=== PATIENT | female | born 1985 | race Hispanic/Latino ===

== ENCOUNTER 2018-07-05 13:36 | Emergency (ER) | payer BC ==
[2018-07-05 13:56] LABS: #Basophils 0.1 thou/uL (0.0-0.2); #Eosinphils 0.3 thou/uL (0.0-0.7); #Lymphocytes 3.1 thou/uL (1.20-3.40); #Monocytes 0.4 thou/uL (0.11-0.59); #Neutrophils 5.1 thou/uL (1.40-6.50); %Basophils 0.8 % (0.0-1.0); %Eosinophils 3.2 % (0.0-10.0); %Lymphocytes 34.3 % (21.0-51.0); %Monocytes 4.4 % (0.0-10.0); %Neutrophils 57.2 % (42.0-75.0); Hemoglobin 12.6 g/dL (12.0-16.0); Mean Corpuscular HGB CONC 32.9 g/dL (32.0-36.0); Mean Corpuscular Hemoglobin 28.5 pg (27.0-31.0); Mean Corpuscular Volume 86.8 fL (78.0-98.0); Mean Platelet Volume 7.4 fL (7.4-10.4); Platelet Count 298 thou/uL (130-400); RBC Distribution Width 12.4 % (11.5-14.5); Red Blood Cell (RBC) Count 4.42 mill/uL (4.20-5.40); White Blood Cell (WBC) Count 8.9 thou/uL (4.8-10.8)
[2018-07-05 14:21] LABS: ALT (SGPT) 13 U/L (8-55); AST (SGOT) 18 U/L (5-34); Albumin 4.1 g/dL (3.5-5.0); Alkaline Phosphatase 67 U/L (40-150); Anion Gap 11 mmol/L (10-20); BUN (Urea Nitrogen) 10 mg/dL (7.0-18.7); Bilirubin, Total 0.2 mg/dL (0.2-1.2); CK (CPK) 608 U/L (29-168); Calc. Creatinine Clearance 0 mL/min (70-130); Calcium 9.1 mg/dL (7.8-10.44); Carbon Dioxide 25 mmol/L (22-29); Chloride 107 mmol/L (98-107); Estimated GFR-MDRD 86; Globulin 2.4 g/dL (2.4-3.5); Glucose 119 mg/dL (70-105); Lipase 25 U/L (8-78); Potassium 3.8 mmol/L (3.5-5.1); Protein, Total 6.5 g/dL (6.0-8.3); Sodium 139 mmol/L (136-145)
--- NOTE | 2018-07-05 14:27 | RAD ---
RADIOGRAPH CHEST 1 VIEW: HISTORY: 33-year-old female with chest pain. FINDINGS: The visualized lung sanchez are clear. The cardiomediastinal silhouette and hilar shadows are normal. The lateral costophrenic angles are sharp. The osseous structures appear normal. There is no pneu mothorax. IMPRESSION: Negative. jn POS: [facility]
[2018-07-05 16:18] LABS: BHCG - Serum Negative (NEGATIVE); Pregs Control Background? CLEAR/WHITE (CLR/WHITE); Pregs Control Bar Appear? YES (CONTROL BAR)
[2018-07-05] MEDS ORDERED: Aspirin Chewable 81 MG TAB ONE (16:33)
[2018-07-05] MEDS ORDERED: Mag-Al 1200 mg/1200 mg/30 ML UDCUP ONE (16:56)
[2018-07-05] MEDS ORDERED: Lidocaine Viscous Sol 2% 15 ml UD Cup ONE (16:56)
--- NOTE | 2018-07-08 11:56 | EKG ---
Test Reason : Blood Pressure : / mmHG Vent. Rate : 070 BPM Atrial Rate : 070 BPM P-R Int : 140 ms QRS Dur : 080 ms QT Int : 414 ms P-R-T Axes : 031 063 016 degrees QTc Int : 447 ms Normal sinus rhythm Normal ECG Confirmed by REBEKA SAUCEDO M.D. ([id number]), editor managing director ESTUARDO MAST ([id number]) on 07/08/2018 11:56:16 AM Referred By: Confirmed By:REBEKA SAUCEDO M.D.
== END 2018-07-05 19:22 | disposition home or self-care (01) ==
LOC: ERS 13:36
DX: R07.89 Other chest pain (principal); F17.210 Nicotine dependence, cigarettes, uncomplicated
CPT/HCPCS: 36415; 71045; 80053; 82550; 83690; 84484; 84703; 85025; 93005; 96360

== ENCOUNTER 2019-04-17 13:56 | Observation (INO) | payer BC ==
[2019-04-17 14:56] LABS: #Basophils 0.1 thou/uL (0.0-0.2); #Eosinphils 0.2 thou/uL (0.0-0.7); #Lymphocytes 2.9 thou/uL (1.20-3.40); #Monocytes 0.9 thou/uL (0.11-0.59); #Neutrophils 13.8 thou/uL (1.40-6.50); %Basophils 0.6 % (0.0-1.0); %Eosinophils 0.9 % (0.0-10.0); %Lymphocytes 16.2 % (21.0-51.0); %Monocytes 4.8 % (0.0-10.0); %Neutrophils 77.6 % (42.0-75.0); Hemoglobin 10.8 g/dL (12.0-16.0); Mean Corpuscular HGB CONC 31.4 g/dL (32.0-36.0); Mean Corpuscular Hemoglobin 26.5 pg (27.0-31.0); Mean Corpuscular Volume 84.3 fL (78.0-98.0); Mean Platelet Volume 7.9 fL (7.4-10.4); Platelet Count 366 thou/uL (130-400); RBC Distribution Width 13.5 % (11.5-14.5); Red Blood Cell (RBC) Count 4.08 mill/uL (4.20-5.40); White Blood Cell (WBC) Count 17.8 thou/uL (4.8-10.8)
[2019-04-17 15:19] LABS: ALT (SGPT) Less than 7 U/L (8-55); AST (SGOT) 11 U/L (5-34); Alkaline Phosphatase 64 U/L (40-110); Anion Gap 12 mmol/L (10-20); BUN (Urea Nitrogen) 9 mg/dL (7.0-18.7); Bilirubin, Total 0.2 mg/dL (0.2-1.2); Calc. Creatinine Clearance 0 mL/min (70-130); Calcium 8.6 mg/dL (7.8-10.44); Carbon Dioxide 21 mmol/L (22-29); Chloride 108 mmol/L (98-107); Estimated GFR-MDRD Greater than 90; Globulin 2.7 g/dL (2.4-3.5); Glucose 102 mg/dL (70-105); Lipase 20 U/L (8-78); Potassium 3.8 mmol/L (3.5-5.1); Protein, Total 6.7 g/dL (6.0-8.3); Sodium 137 mmol/L (136-145)
[2019-04-17 15:54] LABS: Pregnancy Test - Urine (BHCG) POSITIVE (Negative); Pregu Control Background? CLEAR/WHITE (CLR/WHITE); Pregu Control Bar Appear? YES (CONTROL BAR); Specific Gravity 1.028 (1.002-1.036)
[2019-04-17 15:56] LABS: Bilirubin Negative (Negative); Blood, Urine Trace (Negative); Clarity Clear (Clear); Glucose, Urine (Dipstick) Normal (Negative); Leukocyte Negative Leu/uL (Negative); Nitrite Negative (Negative); Protein, Urine (Dipstick) 70 mg/dL (Neg-Trace); RBC/HPF 0-3 HPF (0-3); Urobilinogen Normal mg/dL (Less than 2); WBC/HPF 0-3 HPF (0-3)
[2019-04-17 16:16] LABS: Bacteria/HPF 1+ HPF (None Seen)
[2019-04-17] MEDS ORDERED: Morphine 4 MG/ML VIAL ONE ×2 (16:20→18:55)
[2019-04-17] MEDS ORDERED: Ondansetron PF 4 MG/2 ML Vial ONE (16:20)
--- NOTE | 2019-04-17 17:08 | ULT ---
Exam: Transabdominal and endovaginal pelvic ultrasound HISTORY:Abdominal pain COMPARISON:12/25/2010 TECHNIQUE: Transabdominal and endovaginal imaging of the pelvis is performed. Ovaries are interrogate d with grayscale, color flow, Doppler imaging and spectral wave form analysis FINDINGS: [employer] reports difficult exam. Uterus: FDG avidity throughout the myometrium. Multiple solid echotexture masses are suspected. Repre sentative masses measure 1.7 x 1.7 x 1.6 cm, 1.0 x 2.0 x 2.0 cm, 2.4 x 2.5 x 2.0 cm. Uterus measuring: Enlarged uterus, measuring 9.5 x 6.2 x 5.2 cm. Endometrium: Poorly visualized Endometrium diameter: Not applicable due to poor visualization. . Free fluid: None Right ovary: Limited evaluation. Grossly no abnormality. Right ovary measurement: 2.1 x 3.4 x 2.7 cm Left ovary: Limited evaluation. Diffusely hypoechoic. Left ovary measurements: 2.7 x 5.1 x 5.2 cm Ovarian Doppler: Ovarian Doppler. No cannot be demonstrated in either ovary. IMPRESSION: Markedly limited examination. There does appear to be enlarged uterus with multiple uteri ne leiomyomas. Pelvic MRI may be beneficial. Suboptimal evaluation of both ovaries. Hypoechoic focus in the left ovary is of uncertain etiology. This can also be further interrogated with pelvic M RI. Transcribed Date/Time: 04/17/2019 5:30 PM
--- NOTE | 2019-04-17 20:40 | MRI ---
MRI OF THE PELVIS WITHOUT CONTRAST: 04/17/19 INDICATION: Abdominal pain in a 33-year-old female with reported history of a . Concern for possible kamille endicitis. COMPARISON: Pelvic ultrasound dated 04/17/19 and 12/25/10. FINDINGS: There is a mild to moderate free fluid seen within the lower abdomen and pelvis. The appendix is normal in the right lower quadrant of the abdomen measuring up to 5.9 mm. The visualized bladder is normal appearing. The right ovary is normal appearing on image 26 of series 4. The uterus is enlarged and heterogeneous in appearance with areas of focal leiomyoma seen within the intramural portion of the uterine body. The largest seen measuring 2.9 cm in the anterior uterine bod y. The second largest seen within the posterior uterine body measuring 2.2 cm. There are small Nabot hian cysts within the cervix. No definite intrauterine gestational sac is evident within the uterus. The left ovary is mildly enlarged with prominent follicular cysts. There is more complex appearing mi xed heterogeneous signal abnormality within the left ovary measuring 2.5 x 2.4 cm. It may reflect a corpus luteum; however, small ovarian ectopic is not excluded. Bone marrow signal intensity appears within normal limits. No hydronephrosis is grossly evident withi n the visualized kidneys. IMPRESSION: 1. Normal appendix in the right lower quadrant. 2. Nonspecific mild to moderate free fluid in the pelvis. 3. Enlargement of the left ovary with multiple prominent follicular cysts. There is a complex mi xed signal intensity lesion within the left ovary that is suspicious for a corpus luteum; however, in light of the patient's history of a positive examination, an ovarian ectopic is not entir jeanna excluded. Would recommend continued sonographic clinical and serological follow-up. 4. Fibroid uterus. 5. Nabothian cysts. 1. POS: [facility]
[2019-04-17] MEDS ORDERED: HYDROcodone/Acetaminophen 5/325 mg Tablet PO PRN ×2 (21:32)
[2019-04-17] MEDS ORDERED: Ondansetron ODT 4 MG TAB PO PRN (21:32)
[2019-04-17] MEDS ORDERED: Acetaminophen 325 MG TAB PO PRN (21:32)
[2019-04-17] MEDS ORDERED: Ondansetron PF 4 MG/2 ML Vial IVP PRN (21:32)
[2019-04-17] MEDS ORDERED: HYDROcodone/Acetaminophen 5/325 mg Tablet ONE (23:25)
--- NOTE | 2019-04-18 01:28 | HP ---
CHIEF COMPLAINT: Abdominal pain. HISTORY OF PRESENT ILLNESS: This is a 33-year-old, G3, P2-0-0-2, who presented to the emergency department with abdominal pain starting around lunch today. She reports the pain comes and goes. Nothing makes it worse or better. Morphine helps a little bit. She denies any vaginal bleeding, changes in bowel movements, diarrhea or constipation, urinary complaints, nausea, vomiting, or other concerns. She found out she was when she presented today and was under the impression that she could not get , because she has multiple fibroids in her uterus. REVIEW OF SYSTEMS: Negative for head, eyes, ears, nose, throat, cardiovascular, respiratory, GI, , neuropsych, musculoskeletal, skin, or constitutional symptoms other than mentioned above. PAST MEDICAL HISTORY: 1. Endometriosis. 2. Fibroid uterus. PAST SURGICAL HISTORY: x2. MEDICATIONS: None. ALLERGIES: NO KNOWN DRUG ALLERGIES. SOCIAL HISTORY: Negative for alcohol or drug abuse. She does endorse tobacco use of approximately seven cigarettes per day. BLOCKER METAL BASE HISTORY: Two prior deliveries. Pregnancies were complicated by preeclampsia. She denies any history of sexually transmitted disease. FAMILY HISTORY: Noncontributory. PHYSICAL EXAMINATION: VITAL SIGNS: Afebrile with normal vital signs. GENERAL: Awake and alert, no acute distress. CHEST: Nonlabored. ABDOMEN: Soft. Mildly tender to palpation diffusely. No guarding or rebound. LABORATORY DATA: WBC 17.8, hemoglobin 10.8, hematocrit 34.4, platelets 366,000. HCG 1970.9. Urine consistent with contamination. IMAGING: Pelvic ultrasound report reads markedly limited examination. There does appear to be an enlarged uterus with multiple uterine leiomyomas. Suboptimal evaluation of both ovaries and MRI were performed, which revealed a normal appearing appendix, mild to moderate free fluid, enlargement of the left ovary with a suspected corpus luteum on that side, fibroid uterus. ASSESSMENT AND PLAN: A 33-year-old, G3, P2, with abdominal pain. No IUP was identified on the radiology report. However, upon review of the images, I believe a gestational sac and yolk sac are visible within the uterus in image 53 on the pelvic ultrasound. The fluid in her pelvis likely represents hemorrhagic corpus luteum. I will place an observation overnight for repeat exam in the morning with repeat hemoglobin and pain medication as needed. I discussed the findings with the patient and answered all questions. Job ID: [id number] MTDD
[2019-04-18 06:38] LABS: #Eosinphils 0.2 thou/uL (0.0-0.7); #Lymphocytes 3.9 thou/uL (1.20-3.40); #Monocytes 0.8 thou/uL (0.11-0.59); %Basophils 0.3 % (0.0-1.0); %Eosinophils 2.1 % (0.0-10.0); %Lymphocytes 35.7 % (21.0-51.0); %Monocytes 6.9 % (0.0-10.0); Hemoglobin 8.4 g/dL (12.0-16.0); Mean Corpuscular HGB CONC 32.8 g/dL (32.0-36.0); Mean Corpuscular Hemoglobin 27.8 pg (27.0-31.0); Mean Corpuscular Volume 84.6 fL (78.0-98.0); Mean Platelet Volume 7.9 fL (7.4-10.4); Platelet Count 299 thou/uL (130-400); RBC Distribution Width 13.6 % (11.5-14.5); Red Blood Cell (RBC) Count 3.03 mill/uL (4.20-5.40)
--- NOTE | 2019-04-18 07:49 | PDOC.BPN ---
- Brief Progress Note S: Pain controlled with [place] but still hurts after it wears off. Otherwise without complaints. O: Vital Signs (12 hours) Temp Pulse Resp BP Pulse Ox 04/18/19 03:30 98.1 F 82 20 121/58 L 04/18/19 00:50 97.6 F 74 20 115/58 L 98 Weight Weight 199 lb 15.348 oz Gen - AAO, NAD Abd - soft, diffusely tender to palpation, some voluntary guarding, no rebound Laboratory Results - last 24 hr 04/18/19 06:02 WBC 11.0 H RBC 3.03 L Hgb 8.4 L Hct 25.7 L MCV 84.6 MCH 27.8 MCHC 32.8 RDW 13.6 Plt Count 299 MPV 7.9 Neutrophils % 55.0 Lymphocytes % 35.7 Monocytes % 6.9 Eosinophils % 2.1 Basophils % 0.3 Neutrophils # 6.0 Lymphocytes # 3.9 H Monocytes # 0.8 H Eosinophils # 0.2 Basophils # 0.0 A/P: Patient appears comfortable this morning, vitals stable. Last dose of [place] was 4am. H/H dropped from 10.8/34.4 to 8.4/25.7. Will repeat at 10:00. If stable, can likely d/c home. Continue to monitor.
[2019-04-18] MEDS ORDERED: FLU VACC QS2019-20(6MOS UP)/PF 60 MCG/0.5 ML SYRINGE IM ONE (09:00)
[2019-04-18 10:05] LABS: #Basophils 0.1 thou/uL (0.0-0.2); #Eosinphils 0.2 thou/uL (0.0-0.7); #Lymphocytes 3.4 thou/uL (1.20-3.40); #Monocytes 0.5 thou/uL (0.11-0.59); #Neutrophils 4.4 thou/uL (1.40-6.50); %Basophils 1.4 % (0.0-1.0); %Eosinophils 2.6 % (0.0-10.0); %Lymphocytes 39.2 % (21.0-51.0); %Monocytes 6.1 % (0.0-10.0); %Neutrophils 50.7 % (42.0-75.0); Hemoglobin 8.3 g/dL (12.0-16.0); Mean Corpuscular HGB CONC 32.4 g/dL (32.0-36.0); Mean Corpuscular Volume 83.3 fL (78.0-98.0); Mean Platelet Volume 7.5 fL (7.4-10.4); Platelet Count 285 thou/uL (130-400); RBC Distribution Width 13.5 % (11.5-14.5); Red Blood Cell (RBC) Count 3.06 mill/uL (4.20-5.40); White Blood Cell (WBC) Count 8.6 thou/uL (4.8-10.8)
--- NOTE | 2019-04-18 13:16 | PDOC.EVN ---
Event Note - Event Note Event Note: Pt is a 33yo female with abdominal pain , positive , and free fluid in the belly admitted for serial exam. no clear evidence of ectopic on imaging. Repeat cbc this morning stable at 8.3/25.5 from 8.4/25.7 over 4hours. Pt reports pain is improving. She also reports that she has started bleeding lightly when she is going to the restroom. Pad has very light staining pain is more diffuse and not focal. PT is requesting to eat. vitals 108/59 80 20 Pt in NAD abd soft with tenderness diffuse no focal tenderness on palpation Pt's pain is improving. blood counts stable. vaginal bleeding is starting. Plan at this time to allow pt to resume eating. repeat cbc and quant hcg tonight. concern for ectopic still present but diminishing. PT stable with out signs of worsening. Will reassess tonight.
[2019-04-18 20:19] VITALS: BP 111/55; TEMP 99.2
[2019-04-18] MEDS ORDERED: Polyethylene Glycol 3350 17 GM Packet PO PRN (20:52)
[2019-04-18 20:58] LABS: Hemoglobin 8.2 g/dL (12.0-16.0); Mean Corpuscular Hemoglobin 26.7 pg (27.0-31.0); Mean Corpuscular Volume 83.4 fL (78.0-98.0); Mean Platelet Volume 7.9 fL (7.4-10.4); Platelet Count 302 thou/uL (130-400); RBC Distribution Width 13.5 % (11.5-14.5); Red Blood Cell (RBC) Count 3.06 mill/uL (4.20-5.40); White Blood Cell (WBC) Count 9.1 thou/uL (4.8-10.8)
--- NOTE | 2019-04-19 01:43 | DIS ---
DATE OF ADMISSION: 04/18/2019 DATE OF DISCHARGE: 04/18/2019 ADMISSION DIAGNOSES: 1. Abdominal pain. 2. Positive test. 3. Suspected hemorrhagic corpus luteum for rule out ectopic . DISCHARGE DIAGNOSES: 1. Abdominal pain. 2. Positive test. 3. Suspected hemorrhagic corpus luteum for rule out ectopic . PROCEDURES: Serial testing, lab test blood work, ultrasound and MRI HPI her. HOSPITAL COURSE: The patient is a 33-year-old female who presented to Labor and Delivery with 1-day history of abdominal pain. During her workup, the patient was noted to have a history of endometriosis and a large fibroid uterus and a positive test with no clear IUP, but it could be a gestational sac without a clear yolk sac or pole that would not rule out ectopic . Given the low suspicion for ectopic and patient's acute pain status, the patient was admitted to the hospital for serial exams. Over the course of her stay, the patient's pain has improved spontaneously. Her blood counts have stabilized for the last 3 draws to about 8.2, 8.4 of hemoglobin, hematocrit of 25, and platelets at about 285,000 to 300,000. Her Beta quants have dropped from the time of admission to [facility] from 1970 to 1638. Again during the course of her stay, the patient reports this evening that her pain has improved on its own. She has had some slight spotting on a couple of different occasions. Given the stabilization of her hemoglobin, hematocrit, improving pain and dropping quant levels, suspicion for an emergent situation is very low. We are still not clear as to the location of this , though this could be an IUP with a gestational sac visible. Nonetheless, I am comfortable of the patient being discharged home. She has agreed to come Tuesday for a quantitative HCG and I had stressed given the situation I highly recommend that she follow up with the provider where she can get her quants followed until they are 0. The patient does work for [employer] in [place] and should be able to get labs drawn there. In the meantime, she will come Tuesday for a close interval followup. If she has precipitously dropping quant levels, we will recommend that she get them drawn weekly with her employer until they are 0. The patient has expressed understanding on these instructions and details and has agreed to come Tuesday. She has been provided with a prescription and we have by phone that the lab is available on Tuesday for outpatient walk-in. Job ID: [id number]
== END 2019-04-18 22:30 | disposition home or self-care (01) ==
LOC: ERS 13:56 → 3SE 04-18 00:46
PROVIDERS: ADMIT Obstetrics & Gynecology; ATTEND Obstetrics & Gynecology
DX: O99.89 Other specified diseases and conditions complicating pregnancy, childbirth and the puerperium (principal); R10.9 Unspecified abdominal pain; O34.10 Maternal care for benign tumor of corpus uteri, unspecified trimester; D25.9 Leiomyoma of uterus, unspecified; O34.80 Maternal care for other abnormalities of pelvic organs, unspecified trimester; N83.02 Follicular cyst of left ovary; N88.8 Other specified noninflammatory disorders of cervix uteri; N80.9 Endometriosis, unspecified; O99.330 Smoking (tobacco) complicating pregnancy, unspecified trimester; F17.210 Nicotine dependence, cigarettes, uncomplicated; Z3A.00 Weeks of gestation of pregnancy not specified
CPT/HCPCS: 36415; 51701; 72195; 76856; 80053; 81003; 81015; 81025; 83690; 84702; 85025; 86900; 86901; 90471; 90686; 96360; 96361; 96374; 96375; 96376; A4353; G0008; G0378; J2270; J2405

== ENCOUNTER 2019-09-17 21:04 | Emergency (ER) | payer BC ==
[2019-09-17 21:42] LABS: #Basophils 0.1 thou/uL (0.0-0.2); #Eosinphils 0.4 thou/uL (0.0-0.7); #Lymphocytes 3.3 thou/uL (1.20-3.40); #Monocytes 0.5 thou/uL (0.11-0.59); #Neutrophils 5.9 thou/uL (1.40-6.50); %Basophils 0.8 % (0.0-1.0); %Eosinophils 4.2 % (0.0-10.0); %Lymphocytes 32.6 % (21.0-51.0); %Monocytes 5.1 % (0.0-10.0); %Neutrophils 57.4 % (42.0-75.0); Hemoglobin 12.4 g/dL (12.0-16.0); Mean Corpuscular HGB CONC 32.5 g/dL (32.0-36.0); Mean Corpuscular Hemoglobin 26.9 pg (27.0-31.0); Mean Corpuscular Volume 82.9 fL (78.0-98.0); Mean Platelet Volume 7.5 fL (7.4-10.4); Platelet Count 356 thou/uL (130-400); RBC Distribution Width 14.3 % (11.5-14.5); Red Blood Cell (RBC) Count 4.61 mill/uL (4.20-5.40); White Blood Cell (WBC) Count 10.2 thou/uL (4.8-10.8)
[2019-09-17 22:03] LABS: ALT (SGPT) 18 U/L (8-55); AST (SGOT) 15 U/L (5-34); Albumin 4.4 g/dL (3.5-5.0); Alkaline Phosphatase 78 U/L (40-110); Anion Gap 11 mmol/L (10-20); BUN (Urea Nitrogen) 7 mg/dL (7.0-18.7); Bilirubin, Total 0.3 mg/dL (0.2-1.2); Calc. Creatinine Clearance 0 mL/min (70-130); Carbon Dioxide 27 mmol/L (22-29); Chloride 102 mmol/L (98-107); Estimated GFR-MDRD 80; Globulin 3.3 g/dL (2.4-3.5); Glucose 132 mg/dL (70-105); Potassium 3.4 mmol/L (3.5-5.1); Protein, Total 7.7 g/dL (6.0-8.3); Sodium 137 mmol/L (136-145)
[2019-09-17] MEDS ORDERED: Morphine 4 MG/ML VIAL ONE (22:36)
[2019-09-17] MEDS ORDERED: Ondansetron PF 4 MG/2 ML Vial ONE (22:36)
[2019-09-17] MEDS ORDERED: Aspirin Chewable 81 MG TAB ONE (22:36)
[2019-09-18 00:47] LABS: Troponin I Less than 0.010 ng/mL (< 0.028)
[2019-09-18] MEDS ORDERED: Ketorolac Tromethamine 30 MG/ML VIAL ONE (02:05)
[2019-09-18] MEDS ORDERED: hydrOXYzine 25 MG TAB ONE (02:05)
--- NOTE | 2019-09-18 09:02 | RAD ---
PORTABLE CHEST: History: Chest pain, left arm numbness and tingling Comparison: 07-05-18 FINDINGS: Heart size and mediastinum within normal limits. The lungs are clear of infiltrates. No significant b tiffanie findings. IMPRESSION: No active intrathoracic disease. POS: [facility]
--- NOTE | 2019-09-18 09:04 | RAD ---
CERVICAL SPINE SERIES THREE VIEWS: History: Neck pain. FINDINGS: The vertebral bodies are normal in height. Disc spaces are well preserved. No soft tissue swelling. F acets are in normal alignment. IMPRESSION: Unremarkable cervical spine. POS: [facility]
--- NOTE | 2019-09-23 10:17 | EKG ---
Test Reason : Blood Pressure : / mmHG Vent. Rate : 075 BPM Atrial Rate : 075 BPM P-R Int : 132 ms QRS Dur : 080 ms QT Int : 382 ms P-R-T Axes : 035 041 007 degrees QTc Int : 426 ms Normal sinus rhythm Normal ECG Confirmed by LENO SILVA ([id number]), purchase request editor ESTUARDO MAST ([id number]) on 09/23/2019 10:16:38 AM Referred By: Confirmed By:LENO SILVA
== END 2019-09-18 02:26 | disposition home or self-care (01) ==
LOC: ERS 21:04
DX: R07.89 Other chest pain (principal); F41.9 Anxiety disorder, unspecified; F32.9 Major depressive disorder, single episode, unspecified; F17.210 Nicotine dependence, cigarettes, uncomplicated; Z79.899 Other long term (current) drug therapy
CPT/HCPCS: 36415; 71045; 72040; 80053; 84484; 85025; 93005; 96361; 96374; 96375; J1885; J2270; J2405